=== PATIENT | female | born 1960 | race African-American/Black ===

== ENCOUNTER 2016-07-13 13:43 | Emergency (ER) | payer BC, OTHER ==
[2016-07-13 11:40] LABS: BASOPHILS 0.3 %; BASOPHILS ABSOLUTE 0.02 10/3/uL (0.0-0.16); EOSINOPHILS 1.3 %; EOSINOPHILS ABSOLUTE 0.08 10/3/uL (0.0-0.53); HEMOGLOBIN 13.3 g/dL (12.0-16.0); IMMATURE GRANULOCYTES 0.2 %; IMMATURE GRANULOCYTES ABSOLUTE 0.01 10/3/uL (0.0-0.11); LYMPHOCYTES 42.1 %; LYMPHOCYTES ABSOLUTE 2.57 10/3/uL (0.67-4.30); MEAN CORPUS HGB CONC 34.1 g/dL (32.0-36.0); MEAN CORPUSCULAR HEMOGLOB 32.1 pg (26.0-34.0); MEAN PLATELET VOLUME 10.5 fL (9.2-13.0); MONOCYTES 7.7 %; MONOCYTES ABSOLUTE 0.47 10/3/uL (0.21-1.20); NEUTROPHILS 48.4 %; NEUTROPHILS ABSOLUTE 2.95 10/3/uL (2.02-8.40); PLATELET COUNT 192 10/3/uL (150-400); RBC DISTRIBUTION WIDTH 13.8 % (12.0-16.0); RED CELL COUNT 4.14 10/6/uL (4.0-5.6)
[2016-07-13 11:41] LABS: MANUAL DIFF NO %; MEAN CORPUSCULAR VOLUME 94.2 fL (80-100); WHITE BLOOD CELLS 6.1 10/3/uL (4.5-10.5)
[2016-07-13 11:50] LABS: INTERNATIONAL NORMAL RATI 1.7 UNITS (-)
[2016-07-13 11:51] LABS: PARTIAL THROMBO TIME 40.9 SEC (22.5-37.2)
[2016-07-13 11:52] LABS: PROTIME (NOT ORD) 19.5 SEC (12.0-14.5)
[2016-07-13 11:56] LABS: ALBUMIN 3.9 G/DL (3.5-5.0); ALKALINE PHOSPHATASE 97 U/L (45-117); BUN (BLOOD UREA NITROGEN) 27 MG/DL (6-23); CALCIUM, SERUM 9.7 MG/DL (8.5-10.4); CHLORIDE, SERUM 109 MMOL/L (96-112); CO2 (CARBON DIOXIDE) 23 MMOL/L (24-34); CREATININE 1.55 MG/DL (0.55-1.02); GFR AFRICAN AMERICAN 43 ML/MIN (>=60); GFR NON AFRICAN AMERICAN 37 ML/MIN (>=60); GLUCOSE, SERUM 92 MG/DL (60-99); POTASSIUM, SERUM 4.6 MMOL/L (3.5-5.3); SGOT(AST) 29 U/L (5-40); SGPT(ALT) 29 U/L (5-65); SODIUM, SERUM 141 MMOL/L (135-148); TOTAL BILIRUBIN 0.3 MG/DL (0-1.2); TOTAL PROTEIN 7.9 G/DL (6.0-8.5)
[~2016-07-13 13:43] MED LIST: *HOMEMEDS; ANUSOL-HC2.5 % RE; AT25 PO; C5 PO; K500 PO; LOP25 PO; LOVENOX1C SC; NEXIUM20 M1 PO; NEXIUM40 PO; PRAVACHOL40 MG PO; PRAVACHOL80 MG PO; PRIN20 PO; SPIRO25 PO; ZESTRIL20 MG PO
== END 2016-07-13 16:07 | disposition home or self-care (01) ==
LOC: ER 13:43
PROVIDERS: Hospitalist
DX: R10.12 Left upper quadrant pain (principal); I10 Essential (primary) hypertension; F17.200 Nicotine dependence, unspecified, uncomplicated; Z88.6 Allergy status to analgesic agent; Z88.5 Allergy status to narcotic agent; Z88.8 Allergy status to other drugs, medicaments and biological substances; Z79.899 Other long term (current) drug therapy; Z79.01 Long term (current) use of anticoagulants; W19.XXXA Unspecified fall, initial encounter
CPT/HCPCS: 71260; 74160; 80053; 85025; 85610; 85730; 96374; 96375; 99285; A9270-GY; J2405; Q9967